=== PATIENT | male | born 1955 | race Caucasian/White ===

== ENCOUNTER 2017-11-14 06:07 | Day surgery (SDC) | payer OTHER ==
[~2017-11-14] VITALS: Ht 175.3 cm; Wt 75.0 kg
[~2017-11-14 06:07] MED LIST: SODIUM CHLORIDE 0.9% 1,000 ML IV ONE
[2017-11-14] MEDS ORDERED: LIDOCAINE HCL 2% 30 ML JELLY TP ONE (06:08)
[2017-11-14] MEDS ORDERED: EPINEPHrine 1:1,000 [1 MG/ML] AMP IM ONE (06:08)
[2017-11-14] MEDS ORDERED: BENZOCAINE 20% 50 MCG/SPRAY 57 GM TP ONE (06:08)
[2017-11-14] MEDS ORDERED: LIDOCAINE HCL 4% 50 ML SOLUTION TP ONE (06:08)
[2017-11-14] MEDS ORDERED: SODIUM CHLORIDE 0.9% 1,000 ML IV ONE (07:00)
[2017-11-14] MEDS ORDERED: MIDAZOLAM HCL 2 MG/2 ML VIAL ONE (07:49)
[2017-11-14] MEDS ORDERED: FentaNYL CITRATE-PF 100 MCG/2 ML VIAL ONE (07:50)
[2017-11-14] MEDS ORDERED: MethylPREDNISolone SOD SUCC 125 MG/2 ML VIAL IVP ONE (08:45)
[2017-11-14] MEDS ORDERED: MethylPREDNISolone SOD SUCC 125 MG/2 ML VIAL ONE (09:07)
[2017-11-14] MEDS ORDERED: METOPROLOL TARTRATE 5 MG/5 ML VIAL IVP ONE (09:15)
[2017-11-14] MEDS ORDERED: METOPROLOL TARTRATE 5 MG/5 ML VIAL ONE (09:18)
[2017-11-14] MEDS ORDERED: OXYGEN THERAPY IH SCH (20:00)
== END 2017-11-14 09:50 | disposition home or self-care (01) ==
LOC: SURGERY 06:07
PROVIDERS: ATTEND Internal Medicine Critical Care Medicine
DX: J38.4 Edema of larynx (principal); B37.0 Candidal stomatitis; I10 Essential (primary) hypertension; E78.00 Pure hypercholesterolemia, unspecified; G47.33 Obstructive sleep apnea (adult) (pediatric); I48.91 Unspecified atrial fibrillation; Z98.890 Other specified postprocedural states
CPT/HCPCS: 31623; 31624; 71045; 87015; 87070; 87205; 87206; 87220; J0171; J2250; J2930; J3010; J3490; J7030